=== PATIENT | female | born 1940 | race Caucasian/White ===

== ENCOUNTER 2021-09-13 18:05 | Emergency (ER) | payer OTHER ==
[~2021-09-13] VITALS: Ht 167.6 cm; Wt 68.0 kg
[~2021-09-13 18:05] MED LIST: CRESTOR10 MG PO; GLUCOPHAGE1000 MG PO; JANUVIA100 MG PO; KENALOG OINT 0.15 GM TOP; LEVAQUIN750 MG PO; LISINOPRIL10 MG PO; PLAVIX75 MG PO; PROBIOTIC1 EACH PO; TRIAMTERENE-HC1 EACH PO; VITAMIN A10000 UNI2 PO; VITAMIN D 11000 UNIT PO
[2021-09-13 18:48] LABS: RED BLOOD COUNT 4.94 M/UL (4.00-5.10); WHITE BLOOD COUNT 3.7 K/UL (4.5-11.0)
== END 2021-09-13 22:20 | disposition home or self-care (01) ==
LOC: ER1 18:05
PROVIDERS: Physician Assistant
DX: U07.1 COVID-19 (principal); Z23 Encounter for immunization; E11.9 Type 2 diabetes mellitus without complications; I10 Essential (primary) hypertension; Z79.84 Long term (current) use of oral hypoglycemic drugs; Z88.0 Allergy status to penicillin; Z88.5 Allergy status to narcotic agent; Z88.8 Allergy status to other drugs, medicaments and biological substances; Z87.891 Personal history of nicotine dependence
CPT/HCPCS: 0240U; 36600; 71045; 80053; 82803; 85025; 93005; 96374; 99285; J1885; M0222